=== PATIENT | female | born 1980 | race Caucasian/White ===

== ENCOUNTER → 2021-07-24 | Outpatient (REF) | payer OTHER | LOC: M SFHCCAPE 07:45 | PROVIDERS: ATTEND Physician Assistant | DX: Z53.20 Procedure and treatment not carried out because of patient's decision for unspecified reasons (principal) ==

== ENCOUNTER → 2021-08-07 | Outpatient (REF) | payer OTHER ==
[2021-08-07 16:51] LABS: BASO % 0.6 % (0.0-1.0); EOS # 0.1 10^3/uL (0.0-0.5); HEMATOCRIT 40.7 % (36.0-47.0); HEMOGLOBIN 13.9 g/dl (12.0-15.5); LYMPH # 0.9 10^3/uL (1.5-5.0); LYMPH % 24.9 % (24.0-44.0); MEAN CORPUSCULAR HEMOGLOBIN 32.3 pg (27.0-33.0); MEAN CORPUSCULAR HGB CONC 34.2 g/dl (32.0-36.5); MEAN CORPUSCULAR VOLUME 94.4 fl (80.0-96.0); MONO # 0.4 10^3/uL (0.0-0.8); MONO % 10.8 % (2.0-8.0); NEUTROPHILS # 2.1 10^3/uL (1.5-8.5); NEUTROPHILS % 61.4 % (36.0-66.0); PLATELET COUNT, AUTOMATED 131 10^3/uL (150-450); RED BLOOD COUNT 4.31 10^6/uL (4.00-5.40); WHITE BLOOD COUNT 3.4 10^3/uL (4.0-10.0)
[2021-08-07 17:11] LABS: ALBUMIN 3.5 GM/DL (3.2-5.2); ALT/SGPT 20 U/L (12-78); BILIRUBIN,TOTAL 1.5 MG/DL (0.2-1.0); BLOOD UREA NITROGEN 14 MG/DL (7-18); CALCIUM LEVEL 8.4 MG/DL (8.5-10.1); CARBON DIOXIDE LEVEL 27 MEQ/L (21-32); CHLORIDE LEVEL 105 MEQ/L (98-107); CHOLESTEROL LEVEL 124 MG/DL (<200); CHOLESTEROL RISK RATIO 2.214 (<5); CREATININE FOR GFR 0.79 MG/DL (0.55-1.30); GLOMERULAR FILTRATION RATE > 60.0 (>58); GLUCOSE, FASTING 89 MG/DL (70-100); HDL CHOLESTEROL 56 MG/DL (>40); LDL CHOLESTEROL 54 MG/DL (<100); NON-HDL-C 68 MG/DL; POTASSIUM SERUM 4.2 MEQ/L (3.5-5.1); SODIUM LEVEL 139 MEQ/L (136-145); TOTAL PROTEIN 6.7 GM/DL (6.4-8.2); TRIGLYCERIDES LEVEL 69 MG/DL (<150)
[2021-08-07 18:48] LABS: TOTAL 25(OH) VITAMIN D 40.2 NG/ML (30.0-100.0); VITAMIN B12 LEVEL 513 PG/ML
[2021-08-07 18:50] LABS: FOLATE 11.2 NG/ML
== END ==
LOC: M SFHCCAPE 07:54
PROVIDERS: ATTEND Physician Assistant
DX: Z00.00 Encounter for general adult medical examination without abnormal findings (principal); K21.9 Gastro-esophageal reflux disease without esophagitis

== ENCOUNTER → 2021-10-09 | Outpatient (REF) | payer OTHER | LOC: M SFHCCAPE 09:19 | PROVIDERS: ATTEND Physician Assistant | DX: R79.89 Other specified abnormal findings of blood chemistry (principal); R17 Unspecified jaundice ==

== ENCOUNTER → 2021-10-20 | Outpatient (CLI) | payer OTHER | LOC: M WHC 10:10 | PROVIDERS: ATTEND Physician Assistant | DX: N64.4 Mastodynia (principal); N60.01 Solitary cyst of right breast; N60.02 Solitary cyst of left breast; Z12.31 Encounter for screening mammogram for malignant neoplasm of breast | CPT/HCPCS: 76642; 77066; G0279 ==

== ENCOUNTER → 2021-11-18 | Outpatient (CLI) | payer OTHER | LOC: M LABSMTC 12:05 | PROVIDERS: ATTEND Anesthesiology | DX: Z01.812 Encounter for preprocedural laboratory examination (principal); Z20.822 Contact with and (suspected) exposure to COVID-19 ==

== ENCOUNTER 2021-11-23 12:11 | Day surgery (SDC) | payer OTHER ==
[~2021-11-23] VITALS: Ht 165.1 cm; Wt 51.9 kg
[~2021-11-23 12:11] MED LIST: NS 1,000 ML IV ONE
[2021-11-23 14:57] VITALS: BP 95/62
== END 2021-11-23 15:05 | disposition home or self-care (01) ==
LOC: M OPP 12:11
PROVIDERS: ATTEND Internal Medicine Gastroenterology
DX: R12 Heartburn (principal); D13.1 Benign neoplasm of stomach; K29.70 Gastritis, unspecified, without bleeding; K21.9 Gastro-esophageal reflux disease without esophagitis; Z84.89 Family history of other specified conditions

== ENCOUNTER → 2022-04-13 | Outpatient (CLI) | payer OTHER | LOC: M WHC 12:05 | PROVIDERS: ATTEND Nurse Practitioner Women's Health | DX: R92.8 Other abnormal and inconclusive findings on diagnostic imaging of breast (principal); N60.11 Diffuse cystic mastopathy of right breast; N60.12 Diffuse cystic mastopathy of left breast ==

== ENCOUNTER → 2022-11-09 | Outpatient (CLI) | payer OTHER | LOC: M WHC 12:21 | PROVIDERS: ATTEND Physician Assistant | DX: Z12.31 Encounter for screening mammogram for malignant neoplasm of breast (principal) ==

== ENCOUNTER → 2023-03-11 | Outpatient (REF) | payer OTHER | LOC: M SFHCCAPE 13:29 | PROVIDERS: ATTEND Physician Assistant | DX: Z01.419 Encounter for gynecological examination (general) (routine) without abnormal findings (principal); T19.2XXA Foreign body in vulva and vagina, initial encounter ==

== ENCOUNTER → 2024-02-19 | Outpatient (CLI) | payer OTHER ==
[~2024-02-19] MED LIST changes: -NS 1,000 ML IV ONE; +PANT40TA29 PO
== END ==
LOC: M WHC 11:20
PROVIDERS: ATTEND Physician Assistant
DX: N64.4 Mastodynia (principal)

== ENCOUNTER 2024-11-03 10:02 | Day surgery (SDC) | payer OTHER ==
[~2024-11-03] VITALS: Ht 165.1 cm; Wt 54.3 kg
[2024-11-03] MEDS ORDERED: GLYCOPYRROLATE INJ 0.2 MG/ML 2 ML VIAL As Ordered ONE (12:25)
[2024-11-03] MEDS ORDERED: LIDOCAINE 2% 100MG/5ML SDV (FOR ANES.) As Ordered ONE (12:25)
[2024-11-03] MEDS ORDERED: propofoL 200 MG/20 ML VIAL As Ordered ONE (12:25)
[2024-11-03] MEDS ORDERED: fentaNYL 100 MCG/2 ML INJECTION As Ordered ONE (12:35)
[2024-11-03] MEDS ORDERED: ePHEDrine SULFATE 25 MG/5 ML(5MG/ML) SYRINGE As Ordered ONE (13:10)
[2024-11-03 13:45] VITALS: BP 95/55; O2SAT 97
== END 2024-11-03 14:40 | disposition home or self-care (01) ==
LOC: M OPP 10:02
PROVIDERS: ATTEND Internal Medicine Gastroenterology
DX: Z12.11 Encounter for screening for malignant neoplasm of colon (principal); Z12.12 Encounter for screening for malignant neoplasm of rectum; D12.8 Benign neoplasm of rectum; Z01.818 Encounter for other preprocedural examination; K29.50 Unspecified chronic gastritis without bleeding; R12 Heartburn; Z79.899 Other long term (current) drug therapy
CPT/HCPCS: 43239; 45385; 88305; 91035; J1596; J3010

== ENCOUNTER → 2024-11-19 | Outpatient (CLI) | payer OTHER | LOC: M WHC 07:49 | PROVIDERS: ATTEND Nurse Practitioner | DX: N60.11 Diffuse cystic mastopathy of right breast (principal); N60.12 Diffuse cystic mastopathy of left breast; R59.0 Localized enlarged lymph nodes ==

== ENCOUNTER → 2025-05-24 | Outpatient (CLI) | payer OTHER | LOC: M WHC 15:08 | PROVIDERS: ATTEND Nurse Practitioner | DX: N60.01 Solitary cyst of right breast (principal); N60.02 Solitary cyst of left breast; Z12.31 Encounter for screening mammogram for malignant neoplasm of breast; R92.343 Mammographic extreme density, bilateral breasts ==